=== PATIENT | female | born 1945 | race Caucasian/White ===

== ENCOUNTER 2023-06-11 17:03 | Inpatient (IN) | payer OTHER ==
[~2023-06-11] VITALS: Ht 172.7 cm; Wt 42.0 kg
[~2023-06-11 17:03] MED LIST: CALAN; METFORMIN; OXY5T PO; PREMARIN; PROZAC
[2023-06-11] MEDS ORDERED: MORPHINE SULFATE INJ 2 MG/ml SYRG IV ONE (17:30)
[2023-06-11] MEDS ORDERED: SODIUM CHLORIDE 0.9% 1,000 ML IV ONE (17:30)
[2023-06-11] MEDS ORDERED: ASPirin 81 mg TAB PO ONE (17:30)
[2023-06-11] MEDS ORDERED: NITROGLYCERIN 0.4 MG SL TAB SL ONE (17:30)
[2023-06-11 18:03] VITALS: PULSE 56; RESP 18; O2SAT 95
[2023-06-11 18:08] LABS: Alanine Aminotransferase 96 U/L (7-40); Albumin 4.3 g/dL (3.2-4.8); Alkaline Phosphatase 129 U/L (46-116); Anion Gap 7 (5-15); Aspartate Aminotransferase 199 U/L (13-40); BUN/Creatinine Ratio 21.3 (10.0-20.0); Bilirubin, Total 0.5 mg/dL (0.2-1.0); Blood Urea Nitrogen 23 mg/dL (9-23); Calcium 9.4 mg/dL (8.7-10.4); Carbon Dioxide 23 mmol/L (20-30); Chloride 105 mmol/L (98-107); Glucose 312 mg/dL (74-106); Lipase 74 U/L (12-53); Magnesium 1.9 mg/dL (1.6-2.6); Potassium 4.2 mmol/L (3.5-5.1); Sodium 135 mmol/L (136-145); Total Protein 7.3 g/dL (5.7-8.2)
[2023-06-11 18:32] LABS: Basophils # (auto) 0 10 ^3/uL (0-0.2); Basophils % (auto) 0.5 % (0.0-2.0); Eosinophils # (auto) 0.1 10 ^3/uL (0-0.8); Eosinophils % (auto) 1.1 % (0.0-7.0); Hematocrit 37.4 % (36.0-46.0); Hemoglobin 12.5 g/dL (12.2-16.2); Lymphocytes # (auto) 1.5 10 ^3/uL (0.4-5.4); Mean Corpuscular Hemoglobin 27.8 pg (28.0-32.0); Mean Corpuscular Hgb Conc. 33.4 g/dL (32.0-36.0); Mean Corpuscular Volume 83.5 fL (80.0-100.0); Monocytes # (auto) 0.4 10 ^3/uL (0-1.3); Monocytes % (auto) 5.7 % (0.0-12.0); Neutrophils # (auto) 5.7 10 ^3/uL (1.6-8.6); Neutrophils % (auto) 73.7 % (37.0-80.0); Nucleated Red Blood Cells % 0.2 %; Red Blood Cells 4.47 10^6/uL (4.0-5.20); Red Cell Distribution Width 15.7 % (11.8-14.3); White Blood Cell 7.8 10^3/uL (4.4-10.8)
[2023-06-11 18:49] LABS: INR 1.01 (0.9-1.15); Partial Thromboplastin Time 26.7 SEC (24.5-34.5); Prothrombin Time 10.6 sec (9.3-11.8)
[2023-06-11 19:45] VITALS: PULSE 55; RESP 16; O2SAT 100
[2023-06-11 21:09] LABS: Urine Bacteria FEW /hpf (None Seen); Urine Blood Negative /uL (Negative); Urine Clarity HAZY (Clear); Urine Color Colorless (Yellow); Urine Protein, UAD 1+ (Negative); Urine Specific Gravity 1.013 (1.001-1.035); Urine Urobilinogen Normal (Negative); Urine WBC 46 /hpf (0 - 5); Urine pH 5.5 (5.0-8.0)
[2023-06-11] MEDS ORDERED: hydrALAZINE HCL 20 MG/ML VL IV ONE (22:25)
[2023-06-12] MEDS ORDERED: DOCUSATE SOD 100 MG CAP PO PRN (01:00)
[2023-06-12] MEDS ORDERED: IBUPROFEN 600 MG TAB PO PRN (01:00)
[2023-06-12] MEDS ORDERED: ACETAMINOPHEN 325 MG TAB PO PRN (01:00)
[2023-06-12] MEDS ORDERED: hydrALAZINE HCL 20 MG/ML VL IV PRN (01:00)
[2023-06-12] MEDS ORDERED: DEXTROSE (50%) 50ML SYRG IV PRN (01:00)
[2023-06-12] MEDS: cefTRIAXone 1GM/50ML D5W 50 ML IV SCH (01:25)
[2023-06-12 02:30] VITALS: PULSE 53; RESP 15; O2SAT 97
[2023-06-12] MEDS: SODIUM CHLORIDE 0.9% 1,000 ML IV SCH ×2 (02:42→17:40)
[2023-06-12 04:36] LABS: Amphetamine Screen, Urine Neg (NEGATIVE)
[2023-06-12 04:37] LABS: Barbiturate Scree,Urine Neg (NEGATIVE); Benzodiazephine Screen, Urine Neg (NEGATIVE); Cannabinoid Screen, Urine Neg (NEGATIVE); Cocaine Screen, Urine Neg (NEGATIVE); Opiate Scree,Urine Neg (NEGATIVE); Phencyclidine Screen, Urine Neg (NEGATIVE)
[2023-06-12] MEDS ORDERED: NITROGLYCERIN 0.4 MG SL TAB SL PRN (05:15)
[2023-06-12 05:41] LABS: Basophils # (auto) 0 10 ^3/uL (0-0.2); Basophils % (auto) 0.4 % (0.0-2.0); Eosinophils # (auto) 0 10 ^3/uL (0-0.8); Eosinophils % (auto) 0.4 % (0.0-7.0); Hematocrit 35.2 % (36.0-46.0); Hemoglobin 11.6 g/dL (12.2-16.2); Lymphocytes # (auto) 0.9 10 ^3/uL (0.4-5.4); Lymphocytes % (auto) 10.6 % (10.0-50.0); Mean Corpuscular Hemoglobin 27.7 pg (28.0-32.0); Mean Corpuscular Volume 83.9 fL (80.0-100.0); Monocytes # (auto) 0.5 10 ^3/uL (0-1.3); Monocytes % (auto) 6.1 % (0.0-12.0); Neutrophils % (auto) 82.5 % (37.0-80.0); Nucleated Red Blood Cells % 0.1 %; Red Cell Distribution Width 15.4 % (11.8-14.3); White Blood Cell 8.5 10^3/uL (4.4-10.8)
[2023-06-12 06:01] LABS: Alanine Aminotransferase 428 U/L (7-40); Albumin 3.9 g/dL (3.2-4.8); Alkaline Phosphatase 149 U/L (46-116); Anion Gap 9 (5-15); Aspartate Aminotransferase 534 U/L (13-40); BUN/Creatinine Ratio 17.2 (10.0-20.0); Blood Urea Nitrogen 17 mg/dL (9-23); Carbon Dioxide 20 mmol/L (20-30); Chloride 106 mmol/L (98-107); Glucose 233 mg/dL (74-106); Potassium 4.1 mmol/L (3.5-5.1); Sodium 135 mmol/L (136-145)
[2023-06-12 06:02] LABS: Bilirubin, Total 0.4 mg/dL (0.2-1.0)
[2023-06-12] MEDS: ACCU-CHEK COMFORT CURVE STRIP VI SCH ×3 (07:23→17:28)
[2023-06-12] MEDS: InsuLIN REG 1unit/0.01ml Soln (100units/ml) SC SCH ×4 (07:24→22:00)
[2023-06-12 08:23] VITALS: PULSE 47; RESP 18; O2SAT 98
[2023-06-12] MEDS ORDERED: amLODIPine BESYLATE 5 MG TAB PO SCH (10:00)
[2023-06-12] MEDS: ASPirin 81 mg TAB PO SCH (10:00)
[2023-06-12] MEDS ORDERED: METOPROLOL SUCCINATE XL 50 MG TAB PO ONE (12:45)
[2023-06-12] MEDS ORDERED: LEVOTHYROXINE SODIUM 25 MCG TAB PO ONE (12:45)
[2023-06-12] MEDS ORDERED: TICAGRELOR 90 MG TAB PO ONE (14:15)
[2023-06-12] MEDS ORDERED: NITROGLYCERIN 0.2MG/HR TOPICAL PATCH TD ONE (14:15)
[2023-06-12] MEDS ORDERED: ENOXAPARIN SOD 100 MG/1 ML SYRINGE SC ONE (14:15)
[2023-06-12 15:30] LABS: Triglycerides 205 mg/dL (< 150)
[2023-06-12 15:31] LABS: LDL Cholesterol 200 mg/dL (< 100)
[2023-06-12 15:32] LABS: Cholesterol 262 mg/dL (< 200); HDL Cholesterol 39 mg/dL (40-59)
[2023-06-12] MEDS: ENOXAPARIN SOD 60 MG/0.6 ML SYRINGE SC SCH (15:54)
[2023-06-12] MEDS: ONDANSETRON HCL 4 MG/2 ML VIAL IV PRN (19:53)
[2023-06-12] MEDS: MORPHINE SULFATE INJ 2 MG/ml SYRG IV PRN (19:54)
[2023-06-12 20:00] VITALS: PULSE 53; RESP 17; O2SAT 98
[2023-06-12 22:24] VITALS: BP 158/59; PULSE 54; RESP 18; TEMP 97.8; O2SAT 97
[2023-06-12] MEDS: TICAGRELOR 90 MG TAB PO SCH (22:53)
[2023-06-13] VITALS (8 sets, daily range): BP systolic 120–171; BP diastolic 45–55; PULSE 45–65; RESP 16–20; TEMP 97.5–98.6; O2SAT 94–97
[2023-06-13] MEDS: cefTRIAXone 1GM/50ML D5W 50 ML IV SCH (01:25)
[2023-06-13] MEDS: ACCU-CHEK COMFORT CURVE STRIP VI SCH ×5 (01:36→22:32)
[2023-06-13] MEDS: LEVOTHYROXINE SODIUM 25 MCG TAB PO SCH (06:04)
[2023-06-13] MEDS: InsuLIN REG 1unit/0.01ml Soln (100units/ml) SC SCH ×4 (06:15→22:34)
[2023-06-13 06:42] LABS: Basophils # (auto) 0 10 ^3/uL (0-0.2); Basophils % (auto) 0.5 % (0.0-2.0); Eosinophils # (auto) 0.1 10 ^3/uL (0-0.8); Hematocrit 34.2 % (36.0-46.0); Hemoglobin 11.3 g/dL (12.2-16.2); Lymphocytes # (auto) 1.6 10 ^3/uL (0.4-5.4); Lymphocytes % (auto) 25.3 % (10.0-50.0); Mean Corpuscular Hemoglobin 27.4 pg (28.0-32.0); Monocytes # (auto) 0.6 10 ^3/uL (0-1.3); Monocytes % (auto) 9.5 % (0.0-12.0); Neutrophils # (auto) 3.8 10 ^3/uL (1.6-8.6); Neutrophils % (auto) 62.7 % (37.0-80.0); Red Blood Cells 4.11 10^6/uL (4.0-5.20); Red Cell Distribution Width 15.9 % (11.8-14.3); White Blood Cell 6.1 10^3/uL (4.4-10.8)
[2023-06-13] MEDS ORDERED: LEVO75CA3 PO (06:58)
[2023-06-13 07:22] LABS: Alanine Aminotransferase 297 U/L (7-40); Albumin 3.8 g/dL (3.2-4.8); Alkaline Phosphatase 143 U/L (46-116); Anion Gap 8 (5-15); Aspartate Aminotransferase 170 U/L (13-40); BUN/Creatinine Ratio 16.1 (10.0-20.0); Blood Urea Nitrogen 15 mg/dL (9-23); Carbon Dioxide 20 mmol/L (20-30); Chloride 107 mmol/L (98-107); Glucose 161 mg/dL (74-106); Potassium 4.1 mmol/L (3.5-5.1); Sodium 135 mmol/L (136-145)
[2023-06-13 07:23] LABS: Total Protein 6.6 g/dL (5.7-8.2)
[2023-06-13] MEDS ORDERED: AMLO1TAB22 PO (07:41)
[2023-06-13] MEDS ORDERED: METO-289 PO (07:41)
[2023-06-13] MEDS ORDERED: TICA90TA PO (07:42)
[2023-06-13 08:35] LABS: Bilirubin, Total 0.5 mg/dL (0.2-1.0)
[2023-06-13] MEDS: ENOXAPARIN SOD 60 MG/0.6 ML SYRINGE SC SCH ×2 (09:42→22:29)
[2023-06-13] MEDS: HYDROcodone-ACET 5/325MG TAB PO PRN ×3 (09:53→22:42)
[2023-06-13] MEDS: NITROGLYCERIN 0.2MG/HR TOPICAL PATCH TD SCH (09:54)
[2023-06-13] MEDS: TICAGRELOR 90 MG TAB PO SCH ×2 (09:55→22:27)
[2023-06-13] MEDS: amLODIPine BESYLATE 5 MG TAB PO SCH (09:55)
[2023-06-13] MEDS: ASPirin 81 mg TAB PO SCH (09:55)
[2023-06-13] MEDS: SODIUM CHLORIDE 0.9% 1,000 ML IV SCH ×2 (09:56→09:59)
[2023-06-13] MEDS ORDERED: METOPROLOL SUCCINATE XL 50 MG TAB PO SCH (10:00)
[2023-06-13] MEDS ORDERED: GLUCAGON EMERG KIT 1mg/1ml IV ONE (11:45)
[2023-06-14] VITALS (42 sets, daily range): BP systolic 101–159; BP diastolic 30–105; PULSE 50–119; RESP 0–29; TEMP 97.7–98.2; O2SAT 81–100
[2023-06-14] MEDS: cefTRIAXone 1GM/50ML D5W 50 ML IV SCH (04:00)
[2023-06-14] MEDS: SODIUM CHLORIDE 0.9% 1,000 ML IV SCH ×2 (04:00→19:40)
[2023-06-14 05:47] LABS: Basophils # (auto) 0 10 ^3/uL (0-0.2); Basophils % (auto) 0.6 % (0.0-2.0); Eosinophils # (auto) 0.2 10 ^3/uL (0-0.8); Eosinophils % (auto) 2.7 % (0.0-7.0); Hematocrit 32.4 % (36.0-46.0); Hemoglobin 10.4 g/dL (12.2-16.2); Lymphocytes # (auto) 1.9 10 ^3/uL (0.4-5.4); Lymphocytes % (auto) 31.5 % (10.0-50.0); Mean Corpuscular Hemoglobin 27.5 pg (28.0-32.0); Mean Corpuscular Hgb Conc. 32.1 g/dL (32.0-36.0); Mean Corpuscular Volume 85.5 fL (80.0-100.0); Monocytes # (auto) 0.5 10 ^3/uL (0-1.3); Monocytes % (auto) 8.1 % (0.0-12.0); Neutrophils # (auto) 3.5 10 ^3/uL (1.6-8.6); Neutrophils % (auto) 57.1 % (37.0-80.0); Nucleated Red Blood Cells % 0.1 %; Red Blood Cells 3.78 10^6/uL (4.0-5.20); Red Cell Distribution Width 15.8 % (11.8-14.3); White Blood Cell 6.1 10^3/uL (4.4-10.8)
[2023-06-14 05:58] LABS: Anion Gap 9 (5-15); Calcium 9.1 mg/dL (8.5-10.1); Carbon Dioxide 19 mmol/L (20-30); Chloride 109 mmol/L (98-107); Potassium 4.3 mmol/L (3.5-5.1); Sodium 137 mmol/L (136-145)
[2023-06-14 06:01] LABS: INR 1.04 (0.9-1.15); Partial Thromboplastin Time 30.6 SEC (24.5-34.5); Prothrombin Time 10.9 sec (9.3-11.8)
[2023-06-14 06:04] LABS: BUN/Creatinine Ratio 18.6 (10.0-20.0); Blood Urea Nitrogen 24 mg/dL (9-23); Glucose 189 mg/dL (74-106)
[2023-06-14] MEDS: LEVOTHYROXINE SODIUM 25 MCG TAB PO SCH (06:04)
[2023-06-14] MEDS: ACCU-CHEK COMFORT CURVE STRIP VI SCH ×4 (06:05→21:57)
[2023-06-14] MEDS: InsuLIN REG 1unit/0.01ml Soln (100units/ml) SC SCH ×4 (06:05→21:58)
[2023-06-14] MEDS: TICAGRELOR 90 MG TAB PO SCH ×2 (09:53→21:59)
[2023-06-14] MEDS: ASPirin 81 mg TAB PO SCH (09:53)
[2023-06-14] MEDS: NITROGLYCERIN 0.2MG/HR TOPICAL PATCH TD SCH (09:54)
[2023-06-14] MEDS: amLODIPine BESYLATE 5 MG TAB PO SCH (09:54)
[2023-06-14] MEDS: ENOXAPARIN SOD 60 MG/0.6 ML SYRINGE SC SCH (09:55)
[2023-06-14] MEDS ORDERED: IODIXANOL 320MG/ML 100ML BTL IV ONE ×3 (10:46→12:57)
[2023-06-14] MEDS ORDERED: LIDOCAINE 2%HCL (LOCAL ANESTH.) INJ 20ML MDV ONE (10:46)
[2023-06-14] MEDS ORDERED: ANGIOMAX 250 MG VIAL IV ONE ×2 (10:50→12:54)
[2023-06-14] MEDS ORDERED: fentaNYL CITRATE 100 MCG/2 ML VL ONE ×2 (10:50→12:00)
[2023-06-14] MEDS ORDERED: HEPARIN SODIUM (PORCINE) 5000 UNITS/ML 1ML VIAL ONE (10:50)
[2023-06-14] MEDS ORDERED: VERAPAMIL 2.5MG/ML INJ 2ML VIAL IV ONE (10:50)
[2023-06-14] MEDS ORDERED: MIDAZOLAM HCL 2MG/2ML 2ml VIAL (1mg/ml) ONE (10:51)
[2023-06-14] MEDS ORDERED: SODIUM CHL 0.9% 50 ML ONE ×2 (10:51→12:54)
[2023-06-14] MEDS ORDERED: ATROPINE SULF 1 MG/10ml SYR ONE (12:05)
[2023-06-14] MEDS ORDERED: EPINEPHrine HCL 1 MG/10 ML SYRG ONE (12:10)
[2023-06-14] MEDS ORDERED: ONDANSETRON HCL 4 MG/2 ML VIAL ONE (12:21)
[2023-06-14] MEDS ORDERED: DOPamine 1600MCG/ML D5W 250 ML IV ONE (12:24)
[2023-06-14] MEDS ORDERED: EPTIFIBATIDE INJ (2MG/ML) 10ML VIAL IV ONE (12:46)
[2023-06-14] MEDS ORDERED: NOREPINEPHRINE 8 MG/250ML KIT 250 ML IV ONE (12:59)
[2023-06-14] MEDS ORDERED: FLUMAZENIL 0.1 MG/ML INJ 10ML MDV IV ONE (13:04)
[2023-06-14] MEDS ORDERED: PHENYLEPHRINE INJ 80 MG in SODIUM CHL 0.9% 242 ML IV SCH (13:45)
[2023-06-14 13:48] LABS: Base Excess -14.9 mmol/L (-2.0-2.0)
[2023-06-14] MEDS ORDERED: AMIODARONE BOLUS KIT 100 ML IV ONE (14:15)
[2023-06-14] MEDS ORDERED: AMIODARONE 450mg/250ml AE 250 ML IV SCH ×2 (14:30→20:30)
[2023-06-14] MEDS: ONDANSETRON HCL 4 MG/2 ML VIAL IV PRN (14:40)
[2023-06-14] MEDS ORDERED: MEROPENEM 1GM IVPB 100 ML IV ONE (15:00)
[2023-06-14 15:12] LABS: Basophils # (auto) 0.1 10 ^3/uL (0-0.2); Eosinophils # (auto) 0.1 10 ^3/uL (0-0.8); Eosinophils % (auto) 0.5 % (0.0-7.0); Hematocrit 37.4 % (36.0-46.0); Hemoglobin 11.4 g/dL (12.2-16.2); Lymphocytes # (auto) 2.9 10 ^3/uL (0.4-5.4); Mean Corpuscular Hgb Conc. 30.6 g/dL (32.0-36.0); Red Cell Distribution Width 16.4 % (11.8-14.3)
[2023-06-14 15:13] LABS: Basophils % (auto) 0.2 % (0.0-2.0); Chloride 105 mmol/L (98-107); Lymphocytes % (auto) 11.8 % (10.0-50.0); Mean Corpuscular Hemoglobin 27.7 pg (28.0-32.0); Mean Corpuscular Volume 90.6 fL (80.0-100.0); Monocytes # (auto) 0.8 10 ^3/uL (0-1.3); Monocytes % (auto) 3.4 % (0.0-12.0); Neutrophils # (auto) 20.8 10 ^3/uL (1.6-8.6); Neutrophils % (auto) 84.1 % (37.0-80.0); Potassium 3.9 mmol/L (3.5-5.1); Red Blood Cells 4.12 10^6/uL (4.0-5.20); Sodium 135 mmol/L (136-145); White Blood Cell 24.8 10^3/uL (4.4-10.8)
[2023-06-14 15:14] LABS: Anion Gap 13 (5-15); Calcium 8.5 mg/dL (8.7-10.4); Carbon Dioxide 17 mmol/L (20-30)
[2023-06-14 15:19] LABS: BUN/Creatinine Ratio 14.8 (10.0-20.0); Blood Urea Nitrogen 16 mg/dL (9-23); Glucose 333 mg/dL (74-106)
[2023-06-14] MEDS: MEROPENEM 1GM IVPB 100 ML IV SCH (15:59)
[2023-06-14 17:18] LABS: Base Excess -4.5 mmol/L (-2.0-2.0)
[2023-06-14] MEDS ORDERED: SODIUM BICARBONATE 50ML VIAL 50 ML in SOD CHL 0.45% 1,000 ML IV ONE (17:45)
[2023-06-14] MEDS: MORPHINE SULFATE INJ 2 MG/ml SYRG IV PRN (19:17)
[2023-06-15] VITALS (46 sets, daily range): BP systolic 89–129; BP diastolic 34–53; PULSE 57–85; RESP 13–21; TEMP 98.1–99.6; O2SAT 88–100
[2023-06-15] MEDS: MORPHINE SULFATE INJ 2 MG/ml SYRG IV PRN ×3 (01:00→20:14)
[2023-06-15] MEDS: MEROPENEM 1GM IVPB 100 ML IV SCH ×2 (02:30→14:29)
[2023-06-15 04:27] LABS: Alanine Aminotransferase 218 U/L (7-40); Albumin 3.3 g/dL (3.2-4.8); Alkaline Phosphatase 103 U/L (46-116); Anion Gap 7 (5-15); Aspartate Aminotransferase 440 U/L (13-40); BUN/Creatinine Ratio 17.3 (10.0-20.0); Blood Urea Nitrogen 19 mg/dL (9-23); Calcium 8.3 mg/dL (8.7-10.4); Carbon Dioxide 24 mmol/L (20-30); Chloride 106 mmol/L (98-107); Potassium 3.9 mmol/L (3.5-5.1); Sodium 137 mmol/L (136-145)
[2023-06-15 04:28] LABS: Bilirubin, Total 0.4 mg/dL (0.2-1.0); Total Protein 5.8 g/dL (5.7-8.2)
[2023-06-15 04:30] LABS: Glucose 127 mg/dL (74-106)
[2023-06-15 04:43] LABS: Basophils # (auto) 0 10 ^3/uL (0-0.2); Basophils % (auto) 0.2 % (0.0-2.0); Eosinophils # (auto) 0 10 ^3/uL (0-0.8); Hematocrit 26.6 % (36.0-46.0); Hemoglobin 8.8 g/dL (12.2-16.2); Lymphocytes # (auto) 1.3 10 ^3/uL (0.4-5.4); Lymphocytes % (auto) 10.7 % (10.0-50.0); Mean Corpuscular Hemoglobin 27.8 pg (28.0-32.0); Mean Corpuscular Volume 84.2 fL (80.0-100.0); Monocytes # (auto) 0.9 10 ^3/uL (0-1.3); Monocytes % (auto) 7.8 % (0.0-12.0); Neutrophils # (auto) 9.9 10 ^3/uL (1.6-8.6); Neutrophils % (auto) 81.3 % (37.0-80.0); Nucleated Red Blood Cells % 0.1 %; Red Blood Cells 3.15 10^6/uL (4.0-5.20); Red Cell Distribution Width 15.7 % (11.8-14.3); White Blood Cell 12.1 10^3/uL (4.4-10.8)
[2023-06-15] MEDS: InsuLIN REG 1unit/0.01ml Soln (100units/ml) SC SCH ×4 (06:19→21:45)
[2023-06-15] MEDS: LEVOTHYROXINE SODIUM 25 MCG TAB PO SCH (06:19)
[2023-06-15] MEDS: ACCU-CHEK COMFORT CURVE STRIP VI SCH ×4 (06:19→21:38)
[2023-06-15] MEDS: ASPirin 81 mg TAB PO SCH (09:42)
[2023-06-15] MEDS: amLODIPine BESYLATE 5 MG TAB PO SCH (09:42)
[2023-06-15] MEDS: TICAGRELOR 90 MG TAB PO SCH ×2 (09:42→21:38)
[2023-06-15] MEDS: NITROGLYCERIN 0.2MG/HR TOPICAL PATCH TD SCH (09:43)
[2023-06-15 10:32] LABS: INR 1.04 (0.9-1.15); Prothrombin Time 10.9 sec (9.3-11.8)
[2023-06-15] MEDS: ONDANSETRON HCL 4 MG/2 ML VIAL IV PRN (10:41)
[2023-06-15] MEDS ORDERED: RANOLAZINE ER 500 MG TAB PO ONE (13:15)
[2023-06-15] MEDS ORDERED: IOHEXOL 300 MG/ML 100ML BOTTLE IJ ONE (13:20)
[2023-06-15] MEDS: Glucerna Carbsteady SHAKE Vanilla 8oz PO SCH (17:07)
[2023-06-15] MEDS ORDERED: Ensure HIGH Protein Chocolate 8oz Bottle PO SCH (18:00)
[2023-06-15] MEDS: RANOLAZINE ER 500 MG TAB PO SCH (21:46)
[2023-06-16] VITALS (9 sets, daily range): BP systolic 95–117; BP diastolic 44–50; PULSE 81–97; RESP 18–20; TEMP 97.4–98.8; O2SAT 84–95
[2023-06-16] MEDS: MEROPENEM 1GM IVPB 100 ML IV SCH ×2 (02:57→16:44)
[2023-06-16] MEDS: MORPHINE SULFATE INJ 2 MG/ml SYRG IV PRN ×4 (04:29→13:41)
[2023-06-16] MEDS: ACCU-CHEK COMFORT CURVE STRIP VI SCH ×4 (06:02→21:27)
[2023-06-16] MEDS: InsuLIN REG 1unit/0.01ml Soln (100units/ml) SC SCH ×4 (06:04→21:48)
[2023-06-16] MEDS: LEVOTHYROXINE SODIUM 25 MCG TAB PO SCH (06:04)
[2023-06-16 06:21] LABS: Basophils # (auto) 0 10 ^3/uL (0-0.2); Basophils % (auto) 0.2 % (0.0-2.0); Eosinophils # (auto) 0 10 ^3/uL (0-0.8); Hematocrit 29.1 % (36.0-46.0); Hemoglobin 9.6 g/dL (12.2-16.2); Lymphocytes # (auto) 0.7 10 ^3/uL (0.4-5.4); Monocytes % (auto) 5.6 % (0.0-12.0); Neutrophils # (auto) 16.7 10 ^3/uL (1.6-8.6); Neutrophils % (auto) 90.2 % (37.0-80.0); Red Blood Cells 3.42 10^6/uL (4.0-5.20); Red Cell Distribution Width 15.8 % (11.8-14.3); White Blood Cell 18.5 10^3/uL (4.4-10.8)
[2023-06-16 06:30] LABS: Chloride 101 mmol/L (98-107); Potassium 4.3 mmol/L (3.5-5.1); Sodium 134 mmol/L (136-145)
[2023-06-16 06:32] LABS: Anion Gap 12 (5-15); Calcium 8.9 mg/dL (8.5-10.1); Carbon Dioxide 21 mmol/L (20-30)
[2023-06-16 06:37] LABS: BUN/Creatinine Ratio 19.3 (10.0-20.0); Blood Urea Nitrogen 27 mg/dL (9-23); Glucose 169 mg/dL (74-106)
[2023-06-16] MEDS: TICAGRELOR 90 MG TAB PO SCH ×2 (09:04→21:27)
[2023-06-16] MEDS: ASPirin 81 mg TAB PO SCH (09:05)
[2023-06-16] MEDS: amLODIPine BESYLATE 5 MG TAB PO SCH (09:05)
[2023-06-16] MEDS: RANOLAZINE ER 500 MG TAB PO SCH ×2 (09:05→21:27)
[2023-06-16] MEDS: NITROGLYCERIN 0.2MG/HR TOPICAL PATCH TD SCH (09:06)
[2023-06-16] MEDS: Glucerna Carbsteady SHAKE Vanilla 8oz PO SCH ×3 (09:19→18:00)
[2023-06-16] MEDS ORDERED: ISOSORBIDE MONONITRATE 20 MG TAB PO SCH (10:00)
[2023-06-16] MEDS: ALBUTEROL MEDNEB 2.5 mg/3ml NEB NEB SCH (18:00)
[2023-06-16] MEDS ORDERED: FUROSEMIDE 20 MG/2 ML VIAL IV ONE (18:00)
[2023-06-16] MEDS ORDERED: ALBUMIN 25% 100 ML IV ONE (18:00)
[2023-06-16] MEDS: HYDROcodone-ACET 5/325MG TAB PO PRN ×2 (18:36→22:53)
[2023-06-16] MEDS: IPRATROPIUM BROM 0.5 MG/2.5ML INH SOL NEB SCH (19:00)
[2023-06-17] VITALS (13 sets, daily range): BP systolic 95–118; BP diastolic 39–58; PULSE 81–95; RESP 18–26; TEMP 97.6–99.6; O2SAT 72–91
[2023-06-17] MEDS: MEROPENEM 1GM IVPB 100 ML IV SCH ×2 (03:14→16:34)
[2023-06-17] MEDS: HYDROcodone-ACET 5/325MG TAB PO PRN ×2 (03:19→09:50)
[2023-06-17] MEDS: LEVOTHYROXINE SODIUM 25 MCG TAB PO SCH (06:11)
[2023-06-17] MEDS: ACCU-CHEK COMFORT CURVE STRIP VI SCH ×4 (06:11→22:00)
[2023-06-17] MEDS: InsuLIN REG 1unit/0.01ml Soln (100units/ml) SC SCH ×4 (06:20→22:00)
[2023-06-17 06:55] LABS: Basophils # (auto) 0 10 ^3/uL (0-0.2); Eosinophils # (auto) 0 10 ^3/uL (0-0.8); Hemoglobin 8.3 g/dL (12.2-16.2); Lymphocytes # (auto) 0.5 10 ^3/uL (0.4-5.4); Monocytes # (auto) 0.8 10 ^3/uL (0-1.3); White Blood Cell 16.1 10^3/uL (4.4-10.8)
[2023-06-17 06:58] LABS: Basophils % (auto) 0.3 % (0.0-2.0); Eosinophils % (auto) 0.1 % (0.0-7.0); Hematocrit 25.6 % (36.0-46.0); Lymphocytes % (auto) 2.9 % (10.0-50.0); Mean Corpuscular Hemoglobin 27.8 pg (28.0-32.0); Mean Corpuscular Hgb Conc. 32.6 g/dL (32.0-36.0); Mean Corpuscular Volume 85.2 fL (80.0-100.0); Monocytes % (auto) 4.8 % (0.0-12.0); Neutrophils # (auto) 14.8 10 ^3/uL (1.6-8.6); Neutrophils % (auto) 91.9 % (37.0-80.0); Red Blood Cells 3.01 10^6/uL (4.0-5.20); Red Cell Distribution Width 15.3 % (11.8-14.3)
[2023-06-17 07:25] LABS: Alanine Aminotransferase 97 U/L (7-40); Albumin 3.5 g/dL (3.2-4.8); Alkaline Phosphatase 85 U/L (46-116); Anion Gap 10 (5-15); Aspartate Aminotransferase 111 U/L (13-40); BUN/Creatinine Ratio 23.8 (10.0-20.0); Bilirubin, Total 1.4 mg/dL (0.2-1.0); Calcium 8.7 mg/dL (8.5-10.1); Carbon Dioxide 20 mmol/L (20-30); Chloride 99 mmol/L (98-107); Glucose 207 mg/dL (74-106); Potassium 4.7 mmol/L (3.5-5.1); Total Protein 5.8 g/dL (5.7-8.2)
[2023-06-17] MEDS: ALBUTEROL MEDNEB 2.5 mg/3ml NEB NEB SCH (07:30)
[2023-06-17] MEDS: IPRATROPIUM BROM 0.5 MG/2.5ML INH SOL NEB SCH (07:30)
[2023-06-17 07:43] LABS: Blood Urea Nitrogen 39 mg/dL (9-23); Sodium 129 mmol/L (136-145)
[2023-06-17] MEDS: Glucerna Carbsteady SHAKE Vanilla 8oz PO SCH ×3 (08:00→18:00)
[2023-06-17] MEDS ORDERED: SODIUM CHLORIDE 0.9% 1,000 ML IV SCH (08:30)
[2023-06-17] MEDS ORDERED: FUROSEMIDE 20 MG/2 ML VIAL IV ONE (09:15)
[2023-06-17] MEDS ORDERED: ALBUTEROL MEDNEB 2.5 mg/3ml NEB NEB PRN (09:45)
[2023-06-17] MEDS ORDERED: IPRATROPIUM BROM 0.5 MG/2.5ML INH SOL NEB PRN (09:45)
[2023-06-17] MEDS: RANOLAZINE ER 500 MG TAB PO SCH ×3 (09:50→22:00)
[2023-06-17] MEDS: ASPirin 81 mg TAB PO SCH ×2 (09:50→10:00)
[2023-06-17] MEDS: TICAGRELOR 90 MG TAB PO SCH ×3 (09:50→22:00)
[2023-06-17 10:07] LABS: Lactic Acid w/Reflex 2.1 mmol/L (0.4-2.0)
[2023-06-17] MEDS ORDERED: DOBUTamine 1000MCG/ML 250 ML IV SCH ×2 (10:30→18:00)
[2023-06-17] MEDS ORDERED: ALBUMIN 25% 100 ML IV ONE ×2 (11:52→12:00)
[2023-06-17 12:51] LABS: Base Excess -3.7 mmol/L (-2.0-2.0)
[2023-06-17] MEDS: MORPHINE SULFATE INJ 2 MG/ml SYRG IV PRN (17:40)
[2023-06-17] MEDS ORDERED: MORPHINE SULFATE INJ 2 MG/ml SYRG IV PRN (18:30)
[2023-06-17] MEDS ORDERED: HYDROmorphone HCL 2 MG/ML VL/or syr IV ONE (23:45)
[2023-06-18 00:05] VITALS: BP 114/39; PULSE 95; RESP 20
== END 2023-06-18 03:38 | DRG 853 ==
LOC: ER 17:03 → EDBD 17:03 → TELE 06-12 05:11 → TELE-WESTW 06-12 21:26 → ICU WEST 06-14 13:34 → TELE-WESTW 06-15 10:40
PROVIDERS: ADMIT Internal Medicine; ATTEND Student in an Organized Health Care Education/Training Program
PROC: 02703ZZ Dilation of Coronary Artery, One Artery, Percutaneous Approach (ICD-10-PCS; principal; 2023-06-14)
PROC: 05HD33Z Insertion of Infusion Device into Right Cephalic Vein, Percutaneous Approach (ICD-10-PCS; 2023-06-14)
PROC: B54MZZA Ultrasonography of Right Upper Extremity Veins, Guidance (ICD-10-PCS; 2023-06-14)
PROC: B211YZZ Fluoroscopy of Multiple Coronary Arteries using Other Contrast (ICD-10-PCS; 2023-06-14)
PROC: 4A023N7 Measurement of Cardiac Sampling and Pressure, Left Heart, Percutaneous Approach (ICD-10-PCS; 2023-06-14)
PROC: 5A09357 Assistance with Respiratory Ventilation, Less than 24 Consecutive Hours, Continuous Positive Airway Pressure (ICD-10-PCS; 2023-06-17)
DX: A41.9 Sepsis, unspecified organism (principal); I21.4 Non-ST elevation (NSTEMI) myocardial infarction; N39.0 Urinary tract infection, site not specified; I16.0 Hypertensive urgency; R79.89 Other specified abnormal findings of blood chemistry; I25.10 Atherosclerotic heart disease of native coronary artery without angina pectoris; Z95.5 Presence of coronary angioplasty implant and graft; E03.9 Hypothyroidism, unspecified; I10 Essential (primary) hypertension; E11.65 Type 2 diabetes mellitus with hyperglycemia; E78.5 Hyperlipidemia, unspecified; Z51.5 Encounter for palliative care; Z79.82 Long term (current) use of aspirin; Z79.899 Other long term (current) drug therapy; Z80.0 Family history of malignant neoplasm of digestive organs; Z83.3 Family history of diabetes mellitus; Z90.710 Acquired absence of both cervix and uterus
CPT/HCPCS: 36415; 36600; 71045; 71250; 76604; 76705; 80048; 80053; 80061; 80307; 81001; 81025; 82105; 82248; 82805; 82962; 83036; 83605; 83690; 83735; 83880; 84443; 84484; 85025; 85610; 85730; 86704; 86706; 86708; 86803; 86850; 86900; 86901; 87040; 87081; 87086; 87088; 87186; 87340; 93005; 93306; 94640; 94660; 96361; 96374; 96375; 97163; 99152; 99153; C1769; G0378; J0696; J1815; J2185; J2250; J2405; P9047; Q9967